=== PATIENT | female | born 1985 | race Asian ===

== ENCOUNTER → 2020-09-11 | Outpatient (CLI) | payer OTHER ==
[~2020-09-11] MED LIST: GADOTERATE 7.5 MMOL/15ML VIAL. IVP ONE
--- NOTE | 2020-09-11 17:52 | RAD ---
Exam: MRI abdomen without and with contrast INDICATION: Abnormal liver ultrasound TECHNIQUE: Multiplanar multisequence MRI of the abdomen was obtained before and after the administrat ion of 13 mL of Clariscan Comparisons: None FINDINGS: Heart size is normal. No pericardial effusion. No pleural effusion. Liver contour is normal. No hepatic steatosis. There are numerous simple cysts noted diffusely throug hout the liver, largest measuring 2.3 cm. No suspicious T2 signal or enhancement identified. Spleen, pancreas and adrenals are unremarkable. Gallbladder is distended. Kidneys demonstrate symmetric enhancement. No perinephric inflammation or hydronephrosis. Several sim ple cyst noted in the kidneys bilaterally. Visualized portions of the large and small bowel are unremarkable. No intraabdominal ascites. No intr a-abdominal ascites. Bone marrow signal is normal. IMPRESSION: 1. Numerous simple cyst noted diffusely throughout the liver and kidney. Correlate for polycystic ki dney disease. 2. No suspicious liver mass identified. Electronically signed by: Enedelia Lane MD (09/11/2020 5:49 PM) [facility]
== END ==
LOC: MRI 08:33
PROVIDERS: ATTEND Internal Medicine Gastroenterology
DX: K76.89 Other specified diseases of liver (principal); N28.1 Cyst of kidney, acquired; K82.8 Other specified diseases of gallbladder
CPT/HCPCS: 74183; A9575

== ENCOUNTER → 2020-11-17 | Outpatient (CLI) | payer OTHER ==
--- NOTE | 2020-11-17 15:08 | RAD ---
INDICATION: Reason: LEFT FLANK PAIN / Spl. Instructions: / History: . COMPARISON: None. TECHNIQUE: Axial CT images obtained through the abdomen and pelvis without contrast. One or more of the following individualized dose reduction techniques were utilized for this examinat ion: 1. Automated exposure control; 2. Adjustment of the mA and/or kV according to patient size; 3 . Use of iterative reconstruction technique. FINDINGS: Abdominal aorta is not aneurysmal. No intrahepatic bile duct dilation. Numerous low-density lesions are seen scattered throughout the li garima with larger 1's having the appearance of cystic lesions but many of them are too small to charact erize on this exam. These were better evaluated on MRI. Gallbladder is contracted. No peripancreatic fluid collection. Spleen is unremarkable. There are some calcifications within the pelvis which could be secondary to phleboliths. No hydroneph rosis. Urinary bladder partially distended. Colonic diverticulosis. No periappendiceal inflammatory changes. No dilated loops of bowel to suggest obstruction. Degenerative changes of the spine. IMPRESSION: * No hydronephrosis. * Calcifications within the pelvis which could be from phleboliths. * No evidence of appendicitis. * Multiple low-density lesions scattered throughout the liver which could be secondary to cysts but not well characterized on this exam Electronically signed by: Jc Escudero MD (11/17/2020 3:05 PM) [id number]
== END ==
LOC: CT 14:16
PROVIDERS: ATTEND Internal Medicine Gastroenterology
DX: R10.9 Unspecified abdominal pain (principal); I87.8 Other specified disorders of veins
CPT/HCPCS: 74176

== ENCOUNTER → 2021-01-23 | Day surgery (SDC) | payer OTHER ==
[~2021-01-23] MED LIST changes: -GADOTERATE 7.5 MMOL/15ML VIAL. IVP ONE; +IV RINGERS,LACTATED 1000ML 1,000 ML IV SCH; +LIDOCAINE 2% PF 5 ML VIAL. ONE; +PROPOFOL 10 MG/ML (20ML) VIAL. IV ONE
[2021-01-23 14:40] VITALS: BP 116/76
--- NOTE | 2021-01-23 14:52 | HP ---
ADMIT DATE: 01/23/2021 REFERRING PHYSICIAN: Samantha Calix MD. REASON FOR CONSULTATION: Left upper quadrant and left lower quadrant abdominal pain. HISTORY OF PRESENT ILLNESS: This is a 35-year-old female with past medical history that is noncontributory, is seen with a persistent left flank, left upper quadrant, left lower quadrant pain. Bowel habits have been unsteady as has been weight and appetite. Prior ultrasound did reveal cysts and further imaging suggested polycystic kidney disease. With continued issues, she requested additional evaluation. PAST MEDICAL HISTORY: Polycystic kidney disease. ALLERGIES: None. MEDICATIONS: None. FAMILY HISTORY: Hypertension in father, malignant neoplasm of the pancreas in mother. SOCIAL HISTORY: She is a nonsmoker, social drinker. PAST SURGICAL HISTORY: Tonsillectomy. REVIEW OF SYSTEMS: Per records. PHYSICAL EXAMINATION: GENERAL: Reveals a well-nourished, well-developed female who is alert, cooperative, in no acute distress. VITAL SIGNS: Temperature 98.4, pulse 66, respiratory rate 20. LUNGS: Clear. CARDIOVASCULAR: Reveals an S1, S2, without S3, S4 or appreciable murmur. ABDOMEN: Soft with normoactive bowel sounds. No appreciable hepatosplenomegaly. Epigastric tenderness in left upper quadrant, left lower quadrant with deep palpation. EXTREMITIES: No cyanosis, clubbing or edema. IMPRESSION: Abdominal pain, etiology to be determined. Differential includes irritable bowel syndrome, inflammatory bowel disease, colon polyps, colon cancer, peptic ulcer disease. Therefore, I recommend upper endoscopy and colonoscopy. If this is unrevealing, then further consideration of small bowel series would be pursued. ILDEFONSO/JUAN ANTONIO DR: Tomi TID: [id number]
== END | disposition home or self-care (01) ==
LOC: ENDOS 12:41
PROVIDERS: ATTEND Internal Medicine Gastroenterology
DX: R10.32 Left lower quadrant pain (principal); R10.12 Left upper quadrant pain; K64.0 First degree hemorrhoids; K29.50 Unspecified chronic gastritis without bleeding; K63.89 Other specified diseases of intestine; K31.89 Other diseases of stomach and duodenum; Q61.3 Polycystic kidney, unspecified; K21.9 Gastro-esophageal reflux disease without esophagitis; Z85.038 Personal history of other malignant neoplasm of large intestine; Z79.899 Other long term (current) drug therapy; Z98.890 Other specified postprocedural states; Z20.822 Contact with and (suspected) exposure to COVID-19
CPT/HCPCS: 43235; 45378; 81025; 87426; J2704